=== PATIENT | female | born 1980 | race Caucasian/White ===

== ENCOUNTER 2022-03-14 18:35 | Emergency (ER) | payer OTHER | END 2022-03-14 20:15 | disposition left against medical advice (07) | LOC: CSHERS 18:35 | DX: Z53.21 Procedure and treatment not carried out due to patient leaving prior to being seen by health care provider (principal) ==

== ENCOUNTER 2023-12-02 21:31 | Day surgery (SDC) | payer OTHER ==
[2023-12-02] MEDS ORDERED: hydrALAZINE 20 MG/ML VIAL SLOW IVP PRN (21:54)
[2023-12-02 21:55] VITALS: BMI 31.0
== END 2023-12-02 23:15 | disposition home or self-care (01) ==
LOC: CSHLD/OP 21:31
PROVIDERS: ATTEND Obstetrics & Gynecology
DX: O09.523 Supervision of elderly multigravida, third trimester (principal); O24.419 Gestational diabetes mellitus in pregnancy, unspecified control; Z3A.30 30 weeks gestation of pregnancy; Z79.899 Other long term (current) drug therapy; Z98.890 Other specified postprocedural states